=== PATIENT | male | born 1945 | race Hispanic/Latino ===

== ENCOUNTER 2017-02-20 08:35 | Day surgery (SDC) | payer MEDICARE ==
[2017-02-20 09:46] LABS: Basophils % (Auto) 0.9 % (0.0-1.8); Eosinophils % (Auto) 2.1 % (0.0-4.3); Hematocrit 43.7 % (35.5-45.6); Hemoglobin 15.3 gm/dl (11.8-15.2); Mean Corpuscular HGB Conc 35 % (32-34); Mean Corpuscular Hemoglobin 31 pg (28-32); Mean Corpuscular Volume 89 fl (84-94); Platelet Count 197 K/mm3 (140-440); Red Blood Count 4.91 M/mm3 (3.65-5.03); Red Cell Distribution Width 13.7 % (13.2-15.2); White Blood Count 6.4 K/mm3 (4.5-11.0)
[2017-02-20 09:56] LABS: Anion Gap 18 mmol/L; Blood Urea Nitrogen 18 mg/dL (9-20); Calcium 8.9 mg/dL (8.4-10.2); Carbon Dioxide 24 mmol/L (22-30); Chloride 101.5 mmol/L (98-107); Glucose 157 mg/dL (75-100); INR 0.87 (0.87-1.13); Potassium 4.6 mmol/L (3.6-5.0); Sodium 139 mmol/L (137-145)
[2017-02-20] MEDS ORDERED: NACL 0.9% 500 ML 500 ML IV SCH (10:00)
[2017-02-20] MEDS ORDERED: PLAVIX ONE (10:26)
[2017-02-20] MEDS ORDERED: HEPARIN/NS 5000 UNIT/500ML(CATH LAB) 1,000 ML IR ONE (10:32)
[2017-02-20] MEDS ORDERED: HEPARIN 10,000 UNITS/10 ML ONE (10:33)
[2017-02-20] MEDS ORDERED: CALAN ONE (10:33)
[2017-02-20] MEDS ORDERED: XYLOCAINE 2% INFILTRATI ONE (10:34)
[2017-02-20] MEDS ORDERED: NITROGLYCERIN SYRINGE 3 ML ONE (10:35)
[2017-02-20] MEDS ORDERED: SUBLIMAZE ONE (10:37)
[2017-02-20] MEDS: VERSED ONE ×2 (10:43→10:46)
[2017-02-20] MEDS ORDERED: PLAVIX PO SCH (11:00)
--- NOTE | 2017-02-20 11:41 | Short Stay Summary ---
Short Stay Documentation Date of service: 02/20/17 - History H&P: obtained from office - Allergies and Medications Current Medications: Allergies No Known Allergies Allergy (Verified 02/20/17 09:47) Home Medications Medication Instructions Recorded Confirmed Last Taken Type Aspirin EC [Aspirin Enteric Coated 81 mg PO DAILY 02/20/17 02/20/17 02/20/17 09: 48 History TAB] AtorvaSTATin [Lipitor] 80 mg PO HS 02/20/17 02/20/17 02/18/17 History 80mg Glimepiride [Amaryl] 4 mg PO DAILY 02/20/17 02/20/17 02/19/17 History 4mg HumaLOG VIAL 5 - 15 units SQ PRN PRN 02/20/17 02/20/17 Unknown History Insulin Detemir [Levemir] 55 units SQ HS 02/20/17 02/20/17 02/18/17 History 55units Isosorbide Dinitrate [Isosorbide 30 mg PO DAILY 02/20/17 02/20/17 02/19/17 History Dinitrate] 30mg Metoprolol [Lopressor TAB] 25 mg PO DAILY 02/20/17 02/20/17 02/19/17 History 25mg Nitroglycerin [Nitrostat] 0.4 mg SQ PRN PRN 02/20/17 02/20/17 02/13/17 History Plavix 75 mg PO DAILY 02/20/17 02/20/17 02/19/17 History 75mg Ramipril [Ramipril] 5 mg PO DAILY 02/20/17 02/20/17 02/19/17 History 5mg Ranolazine [Ranexa] 500 mg PO BID #60 tab.er.[id number] 02/20/17 Unknown Rx metFORMIN [Glucophage] 1,000 mg PO BID 02/20/17 02/20/17 02/19/17 History 1000mg Active Medications Clopidogrel Bisulfate (Plavix) 75 mg PO QDAY CINDY Last Admin: 02/20/17 10:25 Dose: 75 mg Sodium Chloride (Nacl 0.9% 500 Ml) 500 mls @ 50 mls/hr IV DIRECT CINDY Stop: 02/20/17 19:59 Last Admin: 02/20/17 09:30 Dose: 50 mls/hr - Brief post op/procedure progress note Date of procedure: 02/20/17 Pre-op diagnosis: angina Post-op diagnosis: same Procedure: see report Anesthesia: local Estimated blood loss: none Pathology: none - Disposition Condition at discharge: Good Disposition: AR-01 TO HOME OR SELFCARE - Discharge Diagnoses (1) Diabetes mellitus Status: Chronic Qualifiers: Diabetes mellitus type: type 1 Diabetes mellitus complication status: with circulatory complication Diabetes mellitus complication detail: with other circulatory complications Diabetic retinopathy severity: D Proliferative retinopathy type: P Diabetes mellitus macular edema: D Diabetes mellitus supervisor intermediates insulin use: D Laterality: L Chronic kidney disease stage: C Qualified Code(s): E10.59 - Type 1 diabetes mellitus with other circulatory complications (2) Hypertension Status: Chronic Qualifiers: Hypertension type: essential hypertension Qualified Code(s): I10 - Essential (primary) hypertension (3) Hyperlipemia, mixed Status: Chronic (4) Angina effort Status: Chronic (5) Abnormal cardiovascular stress test Status: Acute (6) CAD (coronary artery disease) Status: Chronic Qualifiers: Coronary Disease-Associated Artery/Lesion type: [place] artery [place] vs. transplanted heart: [place] heart Associated angina: with unstable angina Qualified Code(s): I25.110 - Atherosclerotic heart disease of [place] coronary artery with unstable angina pectoris Short Stay Discharge Plan Activity: advance as tolerated Diet: low fat, low cholesterol, diabetic Special Instructions: hold Metformin (for 48 hours) Follow up with: TAMIE MAGALLON MD [Staff Physician] - 7 Days Prescriptions: Ranolazine [Ranexa] 500 mg PO BID #60 tab.er.12h
--- NOTE | 2017-02-20 12:17 | Cardiac Catherization Report ---
CLINICAL INFORMATION: A 72-year-old gentleman with known coronary artery disease with 2009 PCI of the RCA with a drug-eluting Xience 4.0 x 15. The patient had a heart catheterization last year which showed left main patent, LAD diffuse disease with small diagonals 95% and circ patent, high OM1 60% and RCA stent patent with small PLV treated medically. He is here for worsening anginal symptoms, abnormal stress test with mild anterior ischemia on beta blockers and nitrates. So, left heart cath performed via the right radial artery, sterile technique, local anesthesia, 6-Armenian radial sheath inserted. Left system engaged with JL3.5 catheter. FINDINGS: 1. Left main is large and patent, bifurcates into a medium caliber LAD, proximal is patent, mid diffuse 40%, distal is patent and medium caliber with mild luminal irregularities. Diagonal 1 is absent. Diagonal 2 is 95% with YAMILKA 1 flow. Circumflex, AV groove is a small to medium caliber vessel that is patent, high OM1 almost ramus has an ostial 70% lesion and OM2 patent. RCA engaged with JR4 catheter, is a large dominant vessel. Proximal patent, mid widely patent, distally patent. PDA is a [id number] caliber vessel patent. PLV is extremely small vessel, has an ostial 95% lesion. No change. LV gram done in [place] and ELLIOTT view shows normal LV function, LVEDP of 24 mmHg, LV is 178/24, aortic is 170/80. No gradient across the aortic valve on pullback. The 5-Armenian catheters were taken over a guidewire, 6-Armenian radial sheath was discontinued. Radial dressing applied. No hematoma. No bleeding. SUMMARY: The patient has small vessel disease with progressive disease in the diagonal that has now become occlusive, has bifurcating ostial high OM1 or ramus, treated medically 60-70% lesion. LAD is diffuse 40-50 and RCA stent patent. Treat medically, add Ranexa and hold metformin for 48 hours and may consider repeat heart catheterization in 6-8 months for progressive LAD disease. JOB# [id number] GILBERT/ADINA
[2017-02-20 14:16] VITALS: BP 156/77
== END 2017-02-20 14:50 | disposition home or self-care (01) ==
LOC: CATHLABREC 08:35
PROVIDERS: ATTEND Internal Medicine
DX: I25.119 Atherosclerotic heart disease of native coronary artery with unspecified angina pectoris (principal); E11.9 Type 2 diabetes mellitus without complications; I10 Essential (primary) hypertension; E78.2 Mixed hyperlipidemia; I25.2 Old myocardial infarction; Z79.4 Long term (current) use of insulin; Z79.01 Long term (current) use of anticoagulants; Z79.899 Other long term (current) drug therapy; Z95.5 Presence of coronary angioplasty implant and graft; Z98.890 Other specified postprocedural states; Z82.49 Family history of ischemic heart disease and other diseases of the circulatory system
CPT/HCPCS: 36415; 80048; 82962; 85025; 85610; 85730; 93005; 93010; 93458; C1894; J1644; J2250; J3010; J7040; Q9967